=== PATIENT | female | born 1980 | race Caucasian/White ===

== ENCOUNTER → 2018-12-05 | Outpatient (CLI) | payer BC ==
--- NOTE | 2018-12-05 17:56 | RAD ---
Examination: HAND LEFT 2V History: Pain, bump at the proximal end of the fourth metacarpal Comparison/Correlation: None Findings: Frontal and lateral views of the left hand were obtained. Joint spaces are normal. No acute fracture or bone destruction. Soft tissues are unremarkable. No significant degenerative change. Impression: Normal two-view left hand x-ray exam. Consider further evaluation if mass lesion is of concern. Electronically signed by: Avelino Ugalde MD (12/05/2018 5:54 PM) [facility]
== END | disposition home or self-care (01) ==
LOC: DXRAD 17:12
PROVIDERS: ATTEND Registered Nurse
DX: M79.642 Pain in left hand (principal)
CPT/HCPCS: 73120